=== PATIENT | male | born 1940 | race Caucasian/White ===

== ENCOUNTER 2025-03-30 22:21 | Emergency (ER) | payer MEDICARE, SELFPAY ==
[2025-03-30 22:27] VITALS: PULSE 117; O2SAT 95
--- NOTE | 2025-03-30 22:27 | DI.RAD.S_ITS ---
PROCEDURE: XR CHEST 1V INDICATIONS: weakness, COVID+ TECHNIQUE: One view of the chest was acquired. COMPARISON: None. FINDINGS: Surgical changes and devices: None. Lungs and pleura: Lungs are clear. No pleural effusions or pneumothorax. Mediastinum: Mediastinal contours appear normal. Heart size is normal. Bones and chest wall: No suspicious bony lesions. Overlying soft tissues appear unremarkable. IMPRESSION: No acute pulmonary process. Dictated by: Rufina Geiger M.D. on 03/31/2025 at 1:04 Approved by: Rufina Geiger M.D. on 03/31/2025 at 1:04
--- NOTE | 2025-03-30 22:27 | ED_ITS ---
HPI - Weakness General Chief complaint: Weakness Stated complaint: weakness, covid+ Time Seen by Provider: 03/30/25 22:32 History of Present Illness HPI Narrative: Patient is a 84-year-old male with a past medical history of AFib on Pradaxa, diabetes on metformin, hyperlipidemia, GERD, hypertension, comes into the ED via EMS for evaluation of generalized weakness, patient is visiting from [place], staying with family/resort, states that today feeling just generally weak, states this is significantly improving, was able to stand bear weight ambulate here in the emergency department, he states that he took a home test and was COVID positive, however he denies any chest pain shortness of breath, medics did note patient with fever at 100.7 F, patient states that he is feeling significantly better no shortness a breath not requiring any supplemental oxygen. Related Data Allergies Allergy/AdvReac Type Severity Reaction Status Date / Time No Known Drug Allergies Allergy Verified 03/30/25 22:38 Review of Systems Review of Systems Narrative: General: Positive generalized weakness, positive fever Denies, chills, weight loss HEENT: Denies headache, eye drainage, eye irritation, head trauma, sore throat, voice change Cardiovascular: Denies any chest pain, palpitations, tachycardia Respiratory: Denies any shortness of breath, cough, wheeze, stridor GI/: Denies any abdominal pain, nausea, vomiting, diarrhea, bright red blood per rectum, melanotic stools, urinary frequency, urinary retention, dysuria, hematuria MSK: Denies any joint pain, muscle pains, swelling Skin: Denies any rashes, lesions, discoloration Neuro: Denies any headache, lightheadedness, dizziness, fainting, weakness Psych: Denies SI/HI Patient History Social History Smoking Status: Never smoker Exam Narrative Exam Narrative: General: Cooperative, well-developed, not in acute distress HEENT: Normocephalic, atraumatic, PERRLA, normal sclera, eyelids normal Neck: Active full range of motion, atraumatic Chest: Normal to inspection, negative crepitus, no overlying erythema ecchymosis Respiratory: Normal respiratory effort, not in acute respiratory distress, clear to auscultation bilaterally negative cough, wheeze, tachypnea, rhonchi, rales Cardiology: Regular rate rhythm negative gallop, murmur, rubs GI/: No tenderness to palpation, soft, non rigid, normal to inspection, exam deferred MSK: Full active range of motion in all 4 extremities, atraumatic, no tenderness to palpation of any bony prominences Skin: No rashes or lesions noted Neuro: NIH of 0 no focal deficits, patient was able to stand bear weight and walk with the assistance from the gurney to the stretcher. Alert awake oriented x3, moves all 4 extremities spontaneously, cranial nerves intact, able to answer all questions appropriately follows commands appropriately Psych: Cooperative, negative suicidal or homicidal ideations Initial Vital Signs Initial Vital Signs: Vital Signs Pulse Rate 117 H 03/30/25 22:27 Pulse Oximetry 95 03/30/25 22:27 Course Orders Ordered: ED Orders 03/30/25 22:27 XR chest 1V Stat EKG-12 Lead Stat 03/30/25 22:30 Complete Blood Count AUTO DIFF Stat Comprehensive Metabolic Panel Stat Lipase Stat MAG [Magnesium] Stat NT-proBNP (BNP-Adult 18+) Stat Procalcitonin Stat Troponin & CK Cardiac Panel Stat 03/30/25 22:39 Covid-19 + FLU A/B + RSV - PCR Stat Discontinued Medications Dabigatran (Dabigatran 75 Mg Capsule) 150 mg PO NOW ONE Stop: 03/30/25 22:49 Last Admin: 03/30/25 23:35 Dose: 150 mg Documented By: MIKE Metformin HCl (Metformin Hcl 500 Mg Tablet) 1,000 mg PO NOW ONE Stop: 03/30/25 22:47 Last Admin: 03/30/25 23:35 Dose: 1,000 mg Documented By: MIKE Metoprolol Tartrate (Metoprolol Ir 25 Mg Tablet) 100 mg PO NOW ONE Stop: 03/30/25 22:47 Last Admin: 03/30/25 23:18 Dose: 100 mg Documented By: MIKE Vital Signs Vital signs: Vital Signs - 8 hr 03/30/25 22:27 03/30/25 22:28 03/30/25 22:28 Temperature Pulse Rate 117 H 91 H Respiratory Rate Blood Pressure 131/72 Pulse Oximetry 95 95 Oxygen Delivery Method 03/30/25 22:30 03/30/25 22:30 03/30/25 22:38 Temperature 99.3 F Pulse Rate 90 119 H Respiratory Rate 20 Blood Pressure 119/73 119/73 Pulse Oximetry 95 95 Oxygen Delivery Method Room Air 03/30/25 23:00 03/30/25 23:00 03/30/25 23:30 Temperature Pulse Rate 107 H Respiratory Rate 31 H Blood Pressure 139/67 124/69 Pulse Oximetry 93 Oxygen Delivery Method 03/30/25 23:30 Temperature Pulse Rate 124 H Respiratory Rate 32 H Blood Pressure Pulse Oximetry 92 Oxygen Delivery Method MDM - Weakness Differential Diagnosis Differential diagnosis: Likely acute myocardial infarction, hypoglycemia, sepsis, dehydration and other (Pneumonia, COVID, flu, RSV) Lab Data 03/30/25 22:30 03/30/25 22:30 Labs: Lab Results 03/30/25 03/30/25 Range/Units 22:30 22:39 WBC 6.8 (4.5-11.0) X10^3/uL RBC 3.76 L (4.5-5.9) X10^6/uL Hgb 11.5 L (13.5-17.5) g/dL Hct 33.3 L (41-53) % MCV 88.6 (80-100) fL MCH 30.7 (26-34) PG MCHC 34.6 (30-36) % RDW 15.6 H (11.6-14.8) % Plt Count 166 (150-400) X10^3/uL Neut % (Auto) 78.0 H (50-75) % Lymph % (Auto) 6.7 L (25-40) % [place] % (Auto) 14.4 H (3-14) % Eos % (Auto) 0.3 L (2-4) % Baso % (Auto) 0.6 (0-2) % Neut # (Auto) 5300 (4976-5639) /uL Lymph # (Auto) 500 L (2175-9065) /uL [place] # (Auto) 1000 H (0-900) /uL Eos # (Auto) 0 (0-450) /uL Baso # (Auto) 0 (0-100) /uL Sodium 134 L (137-145) mmol/L Potassium 4.6 (3.4-5.1) mmol/L Chloride 102 (98-107) mmol/L Carbon Dioxide 24 (22-32) mmol/L BUN 21 H (9-20) mg/dL Creatinine 1.27 H (0.66-1.25) mg/dL Estimated GFR 56 L (>60) mL/min BUN/Creatinine Ratio 16.5 (6-22) Glucose 219 H (70-99) mg/dL Calcium 8.7 (8.4-10.2) mg/dL Magnesium 1.4 L (1.6-2.3) mg/dL Total Bilirubin 0.5 (0.2-1.3) mg/dL AST 26 (17-59) IU/L ALT 16 (<50) IU/L Alkaline Phosphatase 82 (38-126) U/L Total Creatine Kinase 76 (55-170) U/L Troponin I < 0.012 (0.01-0.034) ng/mL NT-Pro-B Natriuret Pep 3770 H (<450) pg/mL Total Protein 6.9 (6.3-8.2) g/dL Albumin 4.0 (3.5-5.0) g/dL Globulin 2.9 (1.7-4.1) g/dL Albumin/Globulin Ratio 1.4 (1.0-2.8) Lipase 53 (23-300) U/L Procalcitonin 0.123 (<0.5) ng/mL SARS-CoV-2 (PCR) Positive H (Negative) Influenza A (RT-PCR) Flu a negative (NEGATIVE) Influenza B (RT-PCR) Flu b negative (NEGATIVE) RSV (PCR) Negative (Negative) Urine Dip Bedside Urine Glucose 100 mg/dl Bedside Urine Bilirubin - Negative Bedside Urine Ketone - Negative Urine Specific [place] 1.015 Bedside Urine Occult Blood +/- Bedside Urine pH 6.0 Bedside Urine Protein +/- 15 Bedside Urine Urobilinogen - Negative Bedside Urine Nitrite - Negative Bedside Urine Leukocytes - Negative Esterase Imaging Data Chest x-ray: Radiologist Impression: Preliminary read showing no acute cardiopulmonary abnormality, no pleural effusion noted no consolidation ECG Data Interpretation: EKG interpreted ED physician atrial fibrillation 117 beats per minute QTC [address] changes no STEMI MDM Narrative Medical decision making narrative: Patient is a 84-year-old male with a past medical history of AFib on Pradaxa, hypertension hyperlipidemia, GERD, comes into the ED via EMS for evaluation of generalized weakness, states that this started earlier today, no other symptoms such as headache visual disturbances chest pain shortness of breath nausea vomiting abdominal pain or any other GI/ symptoms. Patient was noted to be febrile by medics, patient was able to stand bear weight ambulate from gurney to stretcher here, states that he is feeling significantly better, did note that he took a at home COVID test and was positive today. Patient without any leukocytosis, Chem panel unremarkable, troponin negative did note slight elevation in patient's BNP at 3770, however patient not requiring any supplemental oxygen, no pleural effusions on chest x-ray does have a history of CHF, patient was noted to be COVID positive 19 here, patient was able to bear weight ambulate unassisted, stating he is feeling significantly better return precautions given he verbalized understanding of this and agrees to being discharged home with outpatient follow up. 2249: Patient states that he has not taken any of his medications for his nighttime, we will give dose of his Pradaxa, metformin, metoprolol Discharge Plan Departure Patient Disposition: Home Clinical Impression: COVID-19 Instructions: DI for COVID-19 (Suspected or Confirmed ) Activity Restrictions/Additional Instructions: Please follow up with your primary care doctor Please read the discharge instructions sheet carefully and bring all papers to all doctor follow-up visits, as it may contain information that your doctor may want to see. Disease processes change and evolve, if your symptoms worsen or if you develop any new symptoms that are concerning to you please return for evaluation. Your evaluation today does not show any evidence of any life- threatening/serious illnesses requiring admission to the hospital or surgery. Please follow-up with your doctor for re-evaluation in approximately 1 day. Seek immediate medical attention for any worrisome symptoms. *If you do not have a primary care provider please contact the [facility] Resource line at [phone]. They will ask some questions about your medical history and help get you set up with a doctor in the community. Stand Alone Forms: Patient Portal/API
[2025-03-30 22:28] VITALS: BP 131/72; PULSE 91; O2SAT 95
[2025-03-30 22:30] VITALS: BP 119/73; PULSE 90; O2SAT 95
[2025-03-30 22:38] VITALS: BP 119/73; PULSE 119; RESP 20; TEMP 37.4; O2SAT 95; BMI 27.3
[2025-03-30 22:39] LABS: Add Manual Diff / Slide Review NO; Hematocrit 33.3 % (41-53); Hemoglobin 11.5 g/dL (13.5-17.5); Lymphocytes Absolute Auto 500 /uL (1100-4500); Mean Corpuscular HGB Conc 34.6 % (30-36); Mean Corpuscular Hemoglobin 30.7 PG (26-34); Mean Corpuscular Volume 88.6 fL (80-100); Platelet Count 166 X10^3/uL (150-400)
--- NOTE | 2025-03-30 22:42 | EKG_ITS ---
[place] [id number] [place] [id number] Test Date: 2025-03-30 Pat Name: Kamar Brady Department: [facility] Room: Gender: Male Emergency Management Director: TITI : 1940 Requested By: Order Number: [id number] Reading MD: Justino Contreras MD Measurements Intervals [place] Rate: 117 P: NE: QRS: -18 QRSD: 78 T: 45 QT: 330 QTc: 460 Interpretive Statements Atrial fibrillation with rapid ventricular response Possible Anterior infarct , age undetermined NO PRIOR TRACING Electronically Signed On 03-31-2025 7:32:41 PDT by Justino Contreras MD
[2025-03-30 22:57] LABS: Alanine Aminotransferase 16 IU/L (<50); Albumin 4.0 g/dL (3.5-5.0); Albumin Globulin Ratio 1.4 (1.0-2.8); Alkaline Phosphatase 82 U/L (38-126); Blood Urea Nitrogen 21 mg/dL (9-20); Calcium 8.7 mg/dL (8.4-10.2); Carbon Dioxide 24 mmol/L (22-32); Chloride 102 mmol/L (98-107); Creatine Kinase 76 U/L (55-170); Estimated Glomerular Filt Rate 56 mL/min (>60); Globulin 2.9 g/dL (1.7-4.1); Glucose 219 mg/dL (70-99); HEMOLYSIS < 15 (0-50); Lipase 53 U/L (23-300); Magnesium 1.4 mg/dL (1.6-2.3); Potassium 4.6 mmol/L (3.4-5.1); Sodium 134 mmol/L (137-145); Total Protein 6.9 g/dL (6.3-8.2)
[2025-03-30 23:00] VITALS: BP 139/67; PULSE 107; RESP 31; O2SAT 93
[2025-03-30 23:06] LABS: NT-proBNP (BNP-Adult 18+) 3770 pg/mL (<450)
[2025-03-30 23:09] LABS: Troponin I < 0.012 ng/mL (0.01-0.034)
[2025-03-30 23:13] LABS: Procalcitonin 0.123 ng/mL (<0.5)
[2025-03-30] MEDS: METOPROLOL IR 25 MG TABLET 100 MG PO (23:18)
[2025-03-30 23:25] LABS: Influenza A - CEPHEID Flu A NEGATIVE (NEGATIVE); Influenza B - CEPHEID Flu B NEGATIVE (NEGATIVE)
[2025-03-30 23:30] VITALS: BP 124/69; PULSE 124; RESP 32; O2SAT 92
[2025-03-30 23:31] LABS: COVID-19 CEPHEID 4-PLEX PCR POSITIVE (Negative)
[2025-03-30] MEDS: DABIGATRAN 75 MG CAPSULE 150 MG PO (23:35)
[2025-03-30] MEDS: METFORMIN HCL 500 MG TABLET 1000 MG PO (23:35)
--- NOTE | 2025-03-31 00:50 | PC.NURSE ---
Patient ambulated well off monitoring.
[2025-03-31 01:06] VITALS: BP 117/70; PULSE 82; RESP 20; TEMP 37.6; O2SAT 98
== END 2025-03-31 01:06 | disposition home or self-care (01) ==
PROVIDERS: Emergency Provider Student in an Organized Health Care Education/Training Program
DX: U07.1 COVID-19 (principal); I48.91 Unspecified atrial fibrillation; Z79.01 Long term (current) use of anticoagulants
CPT/HCPCS: 71045; 80053; 81003; 82550; 83690; 83735; 83880; 84145; 84484; 85025; 87637; 93005; 93010; 99283; 99284